=== PATIENT | male | born 1970 | race Two or more races ===

== ENCOUNTER → 2017-12-15 | Emergency (ER) | payer OTHER ==
[~2017-12-15] VITALS: Ht 175.3 cm; Wt 81.6 kg
[~2017-12-15] MED LIST: AVAPRO75 MG; HUMALOG100 UNIT/1; SYNTHROID75 MCG
== END | disposition designated cancer center or children's hospital (05) ==
LOC: ER 16:13
DX: S62.613A Displaced fracture of proximal phalanx of left middle finger, initial encounter for closed fracture (principal); S81.012A Laceration without foreign body, left knee, initial encounter; S60.512A Abrasion of left hand, initial encounter; S80.212A Abrasion, left knee, initial encounter; S40.212A Abrasion of left shoulder, initial encounter; V49.9XXA Car occupant (driver) (passenger) injured in unspecified traffic accident, initial encounter; Y93.89 Activity, other specified; Y92.488 Other paved roadways as the place of occurrence of the external cause; Y99.8 Other external cause status